=== PATIENT | male | born 1950 | race Two or more races ===

== ENCOUNTER 2017-06-28 01:55 | Inpatient (IN) | payer OTHER ==
[~2017-06-28] VITALS: Ht 180.3 cm; Wt 83.9 kg
[2017-06-28] MEDS ORDERED: NEURONTIN300 MG (02:20)
[2017-06-28] MEDS ORDERED: FORTAMET500 MG (02:20)
== END 2017-06-30 13:07 | disposition home or self-care (01) | DRG 195 ==
LOC: ER 01:55 → MEDI 07:37 → SEC-K 07:37 → MEDI 10:06
PROC: BW21Y0Z Computerized Tomography (CT Scan) of Abdomen and Pelvis using Other Contrast, Unenhanced and Enhanced (ICD-10-PCS; principal; 2017-06-28)
DX: J10.1 Influenza due to other identified influenza virus with other respiratory manifestations (principal); D69.59 Other secondary thrombocytopenia; K52.89 Other specified noninfective gastroenteritis and colitis; E11.65 Type 2 diabetes mellitus with hyperglycemia; E86.0 Dehydration